=== PATIENT | female | born 1965 | race American Indian/Alaskan Native ===

== ENCOUNTER 2017-12-26 01:42 | Emergency (ER) | payer SELFPAY ==
--- NOTE | 2017-12-26 01:55 | Emergency Department Report ---
HPI - General Chief Complaint: Cardiac Arrest/CPR Time Seen by Provider: 12/26/17 01:43 - HPI HPI: The patient is a 52-year-old female who presents via in cardiac arrest. Per EMS the patient was found down on the ground outside of her home, unresponsive approximately 45 minutes to one hour prior to arrival to the emergency department. EMS states that the patient was found to be in asystole on initial contact, and CPR was immediately initiated. They should've the patient was cold to touch on arrival. ED Past Medical Hx - Past Medical History Previous Medical History?: No - Surgical History Past Surgical History?: No ED Review of Systems ROS: Stated complaint: CARDIAC ARREST Other details as noted in HPI Comment: Unobtainable due to pts medical conditions (unresponsive) Physical Exam - Physical Exam Physical Exam: Physical Exam: General: well-nourished, well-developed Head: Normocephalic, atraumatic Eyes: Pupils were dilated and fixed/unresponsive to light ENT: tube present in mouth Neck: no appreciable carotid bruit or thrill Respiratory: Breath sounds equal with bagging/assisted ventilations Cardio: No distal pulses, extremities cold to touch Abdomen: soft abdomen, no obvious distention, no epigastric breath sounds with assisted ventilation Musc: No pitting edema Skin: The skin of the extremities is cold to touch bilaterally Neuro: Patient unresponsive to verbal or painful stimuli, no abnormal tonicity or posturing ED Medical Decision Making - Medical Decision Making The patient was seen and examined by myself immediately upon arrival, approximately 0138. The patient is placed on a monitoring coordinator and continuous pulse ox. On initial evaluation, the patient was found to be unresponsive in cardiac arrest. Initial monitor rhythm reveals asystole. CPR was continued and the patient is given epinephrine and sodium bicarbonate. Despite multiple rounds of CPR and ACLS medications given to the patient, the patient remained without pulse and in cardiac arrest. As the patient has wide and fixed dilated pupils bilaterally, and has been in cardiac arrest for greater than 30 minutes, the patient has poor chance of return of spontaneous circulation. The resuscitation team was queried regarding additional resuscitation efforts. No further ideas were volunteered. The resuscitation team agreed that best efforts to resuscitate the patient have been made. The resuscitation code is discontinued and the patient is pronounced . Family members are informed of the patient's passing. They are allowed to me with the patient's body subsequently. Critical care attestation.: If time is entered above; I have spent that time in minutes in the direct care of this critically ill patient, excluding procedure time. ED Disposition Clinical Impression: Cardiac arrest Disposition: DC-20 Is pt being admited?: No Does the pt Need Aspirin: No Condition: Critical Referrals: PRIMARY CARE, [Primary Care Provider] - 3-5 Days Time of Disposition: 01:55
[2017-12-26] MEDS ORDERED: ADRENALIN ONE (12:32)
== END 2017-12-26 03:24 ==
LOC: ED 01:42
DX: I46.9 Cardiac arrest, cause unspecified (principal)
CPT/HCPCS: 92950; 99285; J0171